=== PATIENT | male | born 1975 | race Caucasian/White ===

== ENCOUNTER 2017-03-12 07:37 | Emergency (ER) | payer SELFPAY ==
[~2017-03-12] VITALS: Ht 180.3 cm; Wt 68.0 kg
[2017-03-12 07:40] VITALS: BP 136/94
[2017-03-12] MEDS ORDERED: ONDANSETRON ODT 4 MG ONE (08:19)
[2017-03-12] MEDS ORDERED: ONDANSETRON ODT 4 MG PO ONE (08:30)
== END 2017-03-12 11:23 | disposition home or self-care (01) ==
LOC: ED 08:12
DX: F41.1 Generalized anxiety disorder (principal); F15.10 Other stimulant abuse, uncomplicated; F17.200 Nicotine dependence, unspecified, uncomplicated
CPT/HCPCS: 36415; 80047; 99283; Q0162